=== PATIENT | female | born 1990 | race African-American/Black ===

== ENCOUNTER 2024-03-03 01:20 | Emergency (ER) | payer MEDICAID ==
[~2024-03-03] VITALS: Ht 180.3 cm; Wt 88.9 kg
[2024-03-03 01:25] VITALS: BP 122/69; PULSE 85; RESP 17; TEMP 97.8; O2SAT 99
[2024-03-03 01:55] LABS: APPEARANCE,URINE CLEAR (CLEAR); BILIRUBIN,URINE NEGATIVE (NEGATIVE); BLOOD, URINE TRACE-I (NEGATIVE); COLOR,URINE YELLOW (YELLOW); LEUKOCYTE ESTERASE ,URINE 2+ (NEGATIVE); NITRITE, URINE NEGATIVE (NEGATIVE); PROTEIN,URINE NEGATIVE (NEGATIVE); UGLUCOSE NEGATIVE (NEGATIVE); UROBILINOGEN,URINE 0.2 EU/dL (0.2 - 1)
[2024-03-03 02:01] VITALS: O2SAT 98
[2024-03-03 02:11] LABS: BACTERIA,URINE >30 (MANY) /HPF (None Seen); RBC,URINE 0-5 /HPF (0-5); WBC,URINE >25 (MANY) /HPF (0-5)
[2024-03-03 02:12] LABS: MUCUS,URINE 1+ /LPF (None Seen); SQUAMOUS EPITHELIAL CELL,UR 4-10 (MOD) /LPF (0-3 (FEW))
[2024-03-03] MEDS ORDERED: PYR100 PO (02:20)
[2024-03-03] MEDS ORDERED: CEPH-588 PO (02:20)
[2024-03-03] MEDS: cephALEXin 500 MG CAP PO ONE (02:27)
[2024-03-03] MEDS: ACETAMINOPHEN EXTRA STRENGTH 500 MG TAB PO ONE (02:27)
[2024-03-03] MEDS: KETOROLAC 30 MG/ML VIAL IM ONE (02:28)
[2024-03-03 02:30] VITALS: BP 122/69; PULSE 85; RESP 17; TEMP 97.8; O2SAT 98
== END 2024-03-03 02:41 | disposition home or self-care (01) ==
LOC: MED 01:20
DX: N39.0 Urinary tract infection, site not specified (principal); R11.0 Nausea; Z79.2 Long term (current) use of antibiotics; Z79.899 Other long term (current) drug therapy
CPT/HCPCS: 81001; 81025; 87086; 96372; 99283; J1885

== ENCOUNTER 2024-07-04 08:41 | Emergency (ER) | payer MEDICAID ==
[~2024-07-04] VITALS: Ht 180.3 cm; Wt 95.7 kg
[~2024-07-04 08:41] MED LIST: CEPH-588 PO; PYR100 PO
[2024-07-04 09:07] VITALS: BP 147/95; PULSE 89; RESP 18; TEMP 99.2; O2SAT 98
[2024-07-04] MEDS ORDERED: BENZ20GE11 MM (09:37)
[2024-07-04] MEDS ORDERED: AMOX1TAB8 PO (09:37)
== END 2024-07-04 09:55 | disposition home or self-care (01) ==
LOC: MED 08:41
DX: K02.9 Dental caries, unspecified (principal); Z79.899 Other long term (current) drug therapy
CPT/HCPCS: 99283